=== PATIENT | female | born 1980 | race Caucasian/White ===

== ENCOUNTER → 2020-07-11 | Outpatient (CLI) | payer MEDICARE ==
[2020-07-11 14:32] LABS: BUN/CREATININE RATIO 11 (0-10)
[2020-07-12 10:14] LABS: RHEUMATOID ARTHRITIS FACTOR <10.0 IU/mL (0.0-13.9)
[2020-07-13 00:20] LABS: CCP ANTIBODIES IGG/IGA 2 units (0-19)
== END ==
LOC: LAB 13:10
PROVIDERS: Internal Medicine
DX: M25.50 Pain in unspecified joint (principal); D89.89 Other specified disorders involving the immune mechanism, not elsewhere classified; R76.8 Other specified abnormal immunological findings in serum; Z79.1 Long term (current) use of non-steroidal anti-inflammatories (NSAID)
CPT/HCPCS: 36415; 80053; 82728; 83520; 86140; 86200; 86431